=== PATIENT | female | born 1970 ===

== ENCOUNTER 2021-06-11 14:53 | Outpatient (REF) | payer MEDICAID, SELFPAY ==
[2021-06-13 14:24] LABS: COVID-19 RT-PCR UVMMC Result Negative (Negative)
== END 2021-06-11 14:54 | disposition home or self-care (01) ==
LOC: NCHCN 14:53
PROVIDERS: Visit Provider Internal Medicine
DX: Z20.822 Contact with and (suspected) exposure to COVID-19 (principal)
CPT/HCPCS: U0003

== ENCOUNTER 2023-02-11 17:42 | Outpatient (REF) | payer MEDICAID, SELFPAY ==
[2023-02-11 21:16] LABS: COVID-19 PCR Negative (Negative); Source Nasal/Nares
== END 2023-02-11 17:43 | disposition home or self-care (01) ==
LOC: NCHCN 17:42
PROVIDERS: Visit Provider Physician Assistant
DX: Z20.828 Contact with and (suspected) exposure to other viral communicable diseases (principal)
CPT/HCPCS: 87635